=== PATIENT | male | born 2005 | race Two or more races ===

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

== ENCOUNTER 2024-11-14 08:55 | Emergency (ER) | payer OTHER, SELFPAY ==
[~2024-11-14] VITALS: Ht 180.3 cm; Wt 82.9 kg
[2024-11-14] MEDS ORDERED: KETOROLAC 30 MG/ML 1ML VIAL IM ONE (13:40)
[2024-11-14] MEDS: ACETAMINOPHEN 500 MG TAB PO ONE (14:14)
[2024-11-14] MEDS: METOCLOPRAMIDE INJ 10MG/2ML VIAL IV ONE (14:15)
[2024-11-14] MEDS: diphenhydrAMINE 50MG/ML VIAL IV ONE (14:16)
[2024-11-14] MEDS: NS (Normal Saline) 0.9% 1,000 ML IV ONE (14:16)
[2024-11-14] MEDS: KETOROLAC 30 MG/ML 1ML VIAL IV ONE (14:17)
[2024-11-14 14:25] LABS: BASO # 0.1 10^3/uL (0.0-0.2); EOS # 0.1 10^3/uL (0.0-0.5); EOS % 2.5 % (0.0-3.0); HEMATOCRIT 43.1 % (42.0-52.0); HEMOGLOBIN 14.7 g/dl (13.5-17.5); LYMPH # 1.8 10^3/uL (1.5-5.0); LYMPH % 35.5 % (24.0-44.0); MEAN CORPUSCULAR HEMOGLOBIN 30.1 pg (27.0-33.0); MEAN CORPUSCULAR HGB CONC 34.1 g/dl (32.0-36.5); MEAN CORPUSCULAR VOLUME 88.3 fl (80.0-96.0); MONO # 0.4 10^3/uL (0.0-0.8); NEUTROPHILS # 2.7 10^3/uL (1.5-8.5); NEUTROPHILS % 52.6 % (36.0-66.0); PLATELET COUNT, AUTOMATED 269 10^3/uL (150-450); RED BLOOD COUNT 4.88 10^6/uL (4.30-6.10); WHITE BLOOD COUNT 5.1 10^3/uL (4.0-10.0)
[2024-11-14 14:37] LABS: ERYTHROCYTE SEDIMENTATION RATE 6 mm/hr (0-15)
[2024-11-14 14:55] LABS: BLOOD UREA NITROGEN 23 MG/DL (9-23); C REACTIVE PROTEIN QUANTITATIV < 0.50 MG/DL (<1.0); CALCIUM LEVEL 9.1 MG/DL (8.5-10.1); CARBON DIOXIDE LEVEL 27 MMOL/L (20-31); CHLORIDE LEVEL 105 MMOL/L (98-107); CREATININE FOR GFR 1.18 MG/DL (0.70-1.30); GLOMERULAR FILTRATION RATE > 60.0 (>60); GLUCOSE, FASTING 80 MG/DL (60-100); POTASSIUM SERUM 4.5 MMOL/L (3.5-5.1); SODIUM LEVEL 143 MMOL/L (136-145)
[2024-11-14 16:12] VITALS: BP 113/59; O2SAT 99
[2024-11-14 16:15] VITALS: TEMP 97.1
== END 2024-11-14 16:20 | disposition home or self-care (01) ==
LOC: M ED 08:55
DX: G43.809 Other migraine, not intractable, without status migrainosus (principal); F17.290 Nicotine dependence, other tobacco product, uncomplicated; F10.10 Alcohol abuse, uncomplicated
CPT/HCPCS: 70450; 80048; 85025; 85652; 86140; 87486; 87581; 87633; 87798; 87880; 96361; 96374; 96375; 99284; J1200; J1885; J2765